=== PATIENT | female | born 1985 | race Caucasian/White ===

== ENCOUNTER 2025-06-08 13:18 | Outpatient (CLI) | payer OTHER, SELFPAY ==
--- NOTE | ~2025-06-08 | MM_ITS ---
EXAMINATION: MM screening ching BI w jaxson HISTORY: Screening TECHNIQUE: Craniocaudal and mediolateral oblique 3-D tomosynthesis images were obtained and synthetic 2-D images were generated. CAD analysis was submitted and interpreted. COMPARISON: No prior mammogram is available for comparison at this institution. BREAST PARENCHYMAL COMPOSITION: Dense: The breasts are heterogeneously dense, which may obscure small masses FINDINGS: There is a mass in the lower inner quadrant of the right breast, middle third. There is no mammographic evidence for malignancy in the left breast. IMPRESSION: 1. Right breast mass, lower inner quadrant, middle third. 2. Additional mammographic views and possible breast ultrasound are recommended. BI-RADS Category 0: Incomplete: Needs additional imaging evaluation. Reviewed, dictated and finalized at location B. IMPRESSION: 1. Right breast mass, lower inner quadrant, middle third. 2. Additional mammographic views and possible breast ultrasound are recommended . BI-RADS Category 0: Incomplete: Needs additional imaging evaluation.
--- OUTSIDE RECORDS SUMMARY | 2025-06-08 13:23 | XMS_ITS | Clinical Summary ---
Author Organization [facility] Virtual Care Address [address] [place] [place] [phone] Phone Care Team Providers Care Manager Information Name Role Phone Pastor Hou MD Primary Care Provider + [phone] Allergies No known active allergies Medications ibuprofen (ADVIL,MOTRIN) 400 mg tablet Take 600 mg by mouth every 6 (six) hours as needed Active venlafaxine 150 mg tablet extended release 24hr 24 hr tablet Take 150 mg by mouth daily Active vit D3-vit D-doxzvvhwu-kxca [phone] kzos-ufh-oe-mg tablet Take by mouth Active cyclobenzaprine (FLEXERIL) 10 mg tablet Take 10 mg by mouth 3 (three) times a day as needed for muscle spasms Active Active Problems Problem Noted Date Diagnosed Date Intervertebral disc disorder with radiculopathy of lumbar region 12/11/2020 Anxiety 11/12/2009 Cephalalgia 04/24/2009 Atypical migraine 04/24/2009 Immunizations Immunization Administration Dates Next Due DTP 04/20/1990 Influenza, Unspecified 09/08/2020 OPV 04/20/1990 Surgical History Surgery Date Site/Laterality Comments SECTION Medical History Medical History Date Comments Aneurysm Anxiety Depression Family History Medical History Relation Name Comments Stroke Maternal Grandmother Hypertension Mother Hypertension Other 1 Hypertension - mom (Added by TW Conv) Heart disease Other 2 Heart Disease - MGF (Added by TW Conv) Diabetes Other 3 Diabetes Mellit us - PGF (Added by TW Conv) Cancer Other 4 Reported A Hist ory Of Cancer - PHF bladder ca (Added by TW Conv) Migraines Other 5 Common Migraine (Without Aura) - mom and (M)aunt (Added by LITO Conv) Cancer Paternal Grandmother Diabetes Paternal Grandmother Relation Name Status Comments Maternal Grandmother Mother Other 1 Other 2 Other 3 Other 4 Other 5 Paternal Grandmother Social History Tobacco Use Types Packs/Day Years Used Date Smoking Tobacco: Never Smokeless Tobacco: Never Tobacco Cessation:Counseling Given: No Alcohol Use Standard Drinks/Week Comments Yes 1 (1 standard drink = 0.6 oz pur e alcohol) Comments Unknown Sex and Gender Information Value Date Recorded Sex Assigned at Not on file Legal Sex Female 8:24 AM ART GALLERY INTERNS[employer]IP Gender Identity Not on file Sexual Orientation Not on file Obstetrics History Last Filed Vital Signs Vital Sign Reading Time Taken Comments Blood Pressure 126/87 12/11/2020 1:30 PM ART GALLERY INTERNSHIP Pulse 99 12/11/2020 1:30 PM ART GALLERY INTERNSHIP Temperature 36.7 C (98 F) 11/30/2020 7:45 PM ART GALLERY INTERNSHIP Respiratory Rate - - Oxygen Saturation 96% 11/30/2020 7:45 PM ART GALLERY INTERNSHIP Inhaled Oxygen Concentration - - Weight 90.7 kg (200 lb) 12/11/2020 1:30 PM ART GALLERY INTERNSHIP Height 167.6 cm (5' 6) 12/11/2020 1:30 PM ART GALLERY INTERNSHIP Body Mass Index 32.28 12/11/2020 1:30 PM ART GALLERY INTERNSHIP Plan of Treatment Health Maintenance Due Date Last Done Comments Breast Cancer Screening-Mammogram 1985 Cervical Cancer Screening 1985 Depression Screening 1985 Hepatitis C Screening 1985 DTaP/Tdap/Td Vaccine (2 - Tdap) 02/27/1996 04/20/1990 Varicella Vaccines (1 of 2 - 13+ 2-dose series) 1998 Hepatitis B Screening 2003 Regular Well Visit/Exam 18-64 2003 HPV Vaccines (1 - 3-dose SCD M series) 02/27/2012 Influenza Vaccine (#1) 2025 0, 08/28/2013 Pneumococcal vaccine <65 Aged Out No longer eligible based on patient's age to complete this topic Insurance [facility] [employer] Address: [address] [place] [address] [employer] Address: [address] [place] [address] [employer] Address: [address] [place] [address] Advance Directives For more information, please contact: [phone] Documents on File Type Date Recorded Patient Casing Fluid Tender Expl anation ADVANCE DIRECTIVE 01/22/2021 5:51 PM Care Teams Manager Information Relationship Specialty Start Date End Date Pastor Hou MD [address] [address] PCP - General Family Medicine 12/09/20
--- OUTSIDE RECORDS SUMMARY | 2025-06-08 13:23 | XMS_ITS | Referral Summary ---
Author Organization [facility] Virtual Care Address [address] [place] [phone] Phone Care Team Providers Care Water Control Station Engineer Name Role Phone Pastor Hou MD Primary Care Provider [phone] Allergies No known active allergies Medications ibuprofen (ADVIL,MOTRIN) 400 mg tablet Take 600 mg by mouth every 6 (six) hours as needed Active venlafaxine 150 mg tablet extended release 24hr 24 hr tablet Take 150 mg by mouth daily Active vit D3-vit W-nbmvlqfnj-wake [id number] myds-mgn-nl-mg tablet Take by mouth Active cyclobenzaprine (FLEXERIL) 10 mg tablet Take 10 mg by mouth 3 (three) times a day as needed for muscle spasms Active Active Problems Problem Noted Date Diagnosed Date Intervertebral disc disorder with radiculopathy of lumbar region 12/11/2020 Anxiety 11/12/2009 Cephalalgia 04/24/2009 Atypical migraine 04/24/2009 Immunizations Immunization Administration Dates Next Due DTP 04/20/1990 Influenza, Unspecified 09/08/2020 OPV 04/20/1990 Social History Tobacco Use Types Packs/Day Years Used Date Smoking Tobacco: Never Smokeless Tobacco: Never Tobacco Cessation:Counseling Given: No Alcohol Use Standard Drinks/Week Comments Yes 1 (1 standard drink = 0.6 oz pur e alcohol) Comments Unknown Sex and Gender Information Value Date Recorded Sex Assigned at Not on file Legal Sex Female 8:24 AM CAREER REPRESENTATIVE Gender Identity Not on file Sexual Orientation Not on file Last Filed Vital Signs Vital Sign Reading Time Taken Comments Blood Pressure 126/87 12/11/2020 1:30 PM CAREER REPRESENTATIVE Pulse 99 12/11/2020 1:30 PM CAREER REPRESENTATIVE Temperature 36.7 C (98 F) 11/30/2020 7:45 PM CAREER REPRESENTATIVE Respiratory Rate - - Oxygen Saturation 96% 11/30/2020 7:45 PM CAREER REPRESENTATIVE Inhaled Oxygen Concentration - - Weight 90.7 kg (200 lb) 12/11/2020 1:30 PM CAREER REPRESENTATIVE Height 167.6 cm (5' 6) 12/11/2020 1:30 PM CAREER REPRESENTATIVE Body Mass Index 32.28 12/11/2020 1:30 PM CAREER REPRESENTATIVE Plan of Treatment Not on file Insurance [employer] [facility] [employer] Address: [facility] [address] [place] [address] [employer] [facility] [employer] Address: [facility] [address] [place] [address] [employer] [facility] [employer] Address: [facility] [id number] [place] [address] Advance Directives For more information, please contact: [phone] Documents on File Type Date Recorded Patient Pit Clerk Expl anation ADVANCE DIRECTIVE 01/22/2021 5:51 PM Care Teams Water Control Station Engineer Relationship Specialty Start Date End Date Pastor Hou MD [address] [address] PCP - General Family Medicine 12/09/20
== END 2025-06-08 13:19 | disposition home or self-care (01) ==
LOC: CHSIMG 13:21
PROVIDERS: PCP Family Medicine; Visit Provider Obstetrics & Gynecology Gynecology
DX: Z12.31 Encounter for screening mammogram for malignant neoplasm of breast (principal); R92.8 Other abnormal and inconclusive findings on diagnostic imaging of breast
CPT/HCPCS: 77063; 77067

== ENCOUNTER 2025-06-19 09:17 | Outpatient (CLI) | payer OTHER, SELFPAY ==
--- NOTE | ~2025-06-19 | MMUS_ITS ---
EXAMINATION: MM diagnostic ching RT w jaxson, US breast RT limited HISTORY: Follow-up right breast mass TECHNIQUE: Additional 3-D tomosynthesis images of the right breast were performed and synthetic 2-D i mages were generated. CAD analysis was submitted and interpreted. High resolution Limited right breas t ultrasound was performed. COMPARISON: Mammogram dated 06/08/2025 BREAST PARENCHYMAL COMPOSITION: Dense: The breasts are heterogeneously dense, which may obscure small masses FINDINGS: MAMMOGRAPHIC FINDINGS: There is a mass of the right breast involving the medial aspect of the right breast at approximately 3:00 position, middle third. There are no suspicious calcifications or architectural distortion. ULTRASOUND: Limited right breast ultrasound: At 2:00, 6 cm from the nipple there is a solid mass which is paralle l to the skin surface is slightly irregular lateral margins and no internal vascularity. This mass me asures 11 x 9 x 8 mm. IMPRESSION: 1. Right breast mass located at 2:00, 6 cm from the nipple measuring 11 mm corresponding to the mammo graphic finding. 2. Ultrasound-guided right breast biopsy recommended. BI-RADS category 4, suspicious findings. Reviewed, dictated and finalized at location A. IMPRESSION: 1. Right breast mass located at 2:00, 6 cm from the nipple measuring 11 mm taj esponding to the mammographic finding. 2. Ultrasound-guided right breast biopsy recommended. BI-RADS category 4, suspicious findings.
--- OUTSIDE RECORDS SUMMARY | 2025-06-19 09:48 | XMS_ITS | Clinical Summary ---
Author Organization [facility] Virtual Care Address [address] [place] [phone] Phone Care Team Providers Care Road Freight Firer Name Role Phone Pastor Hou MD Primary Care Provider + [phone] Allergies No known active allergies Medications ibuprofen (ADVIL,MOTRIN) 400 mg tablet Take 600 mg by mouth every 6 (six) hours as needed Active venlafaxine 150 mg tablet extended release 24hr 24 hr tablet Take 150 mg by mouth daily Active vit D3-vit C-larjqpevv-rnsh [phone] bcjr-ckl-qs-mg tablet Take by mouth Active cyclobenzaprine (FLEXERIL) [...] on file Legal Sex Female 8:24 AM RF DESIGN ENGINEER Gender Identity Not on file Sexual Orientation Not on file Obstetrics History Last Filed Vital Signs Vital Sign Reading Time Taken Comments Blood Pressure 126/87 12/11/2020 1:30 PM RF DESIGN ENGINEER Pulse 99 12/11/2020 1:30 PM RF DESIGN ENGINEER Temperature 36.7 C (98 F) 11/30/2020 7:45 PM RF DESIGN ENGINEER Respiratory Rate - - Oxygen Saturation 96% 11/30/2020 7:45 PM RF DESIGN ENGINEER Inhaled Oxygen Concentration - - Weight 90.7 kg (200 lb) 12/11/2020 1:30 PM RF DESIGN ENGINEER Height 167.6 cm (5' 6) 12/11/2020 1:30 PM RF DESIGN ENGINEER Body Mass Index 32.28 12/11/2020 1:30 PM RF DESIGN ENGINEER Plan of Treatment Health Maintenance Due Date [...] age to complete this topic Insurance [employer] [facility] [employer] Address: [address] [place] [address] [employer] [facility] [employer] Address: [address] [place] [address] [employer] [facility] [employer] Address: [address] [place] [address] Advance Directives For more information, please contact: [phone] Documents on File Type Date Recorded Patient Guard Entrance Registrar Expl anation ADVANCE DIRECTIVE 01/22/2021 5:[address] Freight Firer Relationship Specialty Start Date End Date Pastor Hou MD [address] [address] PCP - General Family Medicine 12/09/20
== END 2025-06-19 09:18 | disposition home or self-care (01) ==
PROVIDERS: PCP Family Medicine; Visit Provider Obstetrics & Gynecology Gynecology
DX: R92.8 Other abnormal and inconclusive findings on diagnostic imaging of breast (principal)
CPT/HCPCS: 76642; 77061; 77065; G0279

== ENCOUNTER 2025-07-03 08:27 | Outpatient (CLI) | payer OTHER, SELFPAY ==
--- NOTE | ~2025-07-03 | MMUS_ITS ---
PROCEDURE: US breast biopsy RT w image, MM post biopsy diagnostic RT CLINICAL HISTORY: 40-year-old with suspicious right breast mass at 2:00 location, presents for ultrasound-guided right breast core needle biopsy procedure. COMPARISON: 06/19/2025 Following informed consent including risks, benefits, and possible complications, the patient was brought to the ultrasound suite. A time-out procedure was performed. A preliminary ultrasound of the right breast was performed, redemonstrating the targeted lesion of the solid hypoechoic mass at 12:00, 6 cm from the nipple. The patient was prepped and draped in the usual sterile fashion. 1% lidocaine was instilled into the subcutaneous tissues. 1% lidocaine without epinephrine was injected into the deep tissues just inferior to the lesion. Approximately 15cc lidocaine was administered. A small skin natalie was made. Multiple core samples were obtained with a 14-gauge multi pass biopsy needle. A post biopsy coil Hydromark marker was placed at the biopsy site. Postprocedural mammogram of the right breast in craniocaudal and mediolateral projections reveal the post biopsy metal marker in good position. The patient tolerated the procedure well and was without immediate postprocedural complications. IMPRESSION: Successful ultrasound guided biopsy of right breast mass. A post biopsy coil Hydromark marker was placed at the biopsy site, which is seen on postprocedural mammogram. The patient tolerated the procedure well without immediate postprocedure complications. The patient was given postprocedural instructions and sent home in stable condition. Reviewed, dictated and finalized at location B. IMPRESSION: Successful ultrasound guided biopsy of right breast mass. A post bi opsy coil Hydromark marker was placed at the biopsy site, which is seen on post procedural mammogram. The patient tolerated the procedure well without immediate postprocedure compli cations. The patient was given postprocedural instructions and sent home in sta ble condition.
--- OUTSIDE RECORDS SUMMARY | 2025-07-03 08:37 | XMS_ITS | Clinical Summary ---
Author Organization [facility] Virtual Care Address [address] [place] [address] Phone Care Team Providers Care Dietary Services Manager Name Role Phone Pastor Hou MD Primary Care Provider + [phone] Allergies No known active allergies Medications ibuprofen (ADVIL,MOTRIN) 400 mg tablet Take 600 mg by mouth every 6 (six) hours as needed Active venlafaxine 150 mg tablet extended release 24hr 24 hr tablet Take 150 mg by mouth daily Active vit D3-vit D-srotwcmqd-wgjj [phone] ejhh-yxa-li-mg tablet Take by mouth Active cyclobenzaprine (FLEXERIL) [...] on file Legal Sex Female 8:24 AM FRAME CLEANER Gender Identity Not on file Sexual Orientation Not on file Obstetrics History Last Filed Vital Signs Vital Sign Reading Time Taken Comments Blood Pressure 126/87 12/11/2020 1:30 PM FRAME CLEANER Pulse 99 12/11/2020 1:30 PM FRAME CLEANER Temperature 36.7 C (98 F) 11/30/2020 7:45 PM FRAME CLEANER Respiratory Rate - - Oxygen Saturation 96% 11/30/2020 7:45 PM FRAME CLEANER Inhaled Oxygen Concentration - - Weight 90.7 kg (200 lb) 12/11/2020 1:30 PM FRAME CLEANER Height 167.6 cm (5' 6) 12/11/2020 1:30 PM FRAME CLEANER Body Mass Index 32.28 12/11/2020 1:30 PM FRAME CLEANER Plan of Treatment Health Maintenance Due Date [...] age to complete this topic Insurance [facility] [employer] Address: [address] [place] [address] [employer] [employer] [facility] [employer] Address: [address] [place] [address] [employer] [employer] Address: [address] [place] [address] Advance Directives For more information, please contact: [phone] Documents on File Type Date Recorded Patient Fire Extinguisher Tester Expl anation ADVANCE DIRECTIVE 01/22/2021 5:51 PM Care Teams Dietary Services Manager Relationship Specialty Start Date End Date Pastor Hou MD [address] [address] PCP - General Family Medicine 12/09/20
--- OUTSIDE RECORDS SUMMARY | 2025-07-03 08:37 | XMS_ITS | Clinical Summary ---
Author Organization [facility] Address [address] [place] [address] Care Team Providers Care Scientist Engineer Name Role Phone Pastor Hou MD Primary Care Provider [phone] Allergies No known active allergies Medications busPIRone 10 MG tabletIndicatio ns:2 tablets in the morning and 1 tablet in the evening Take 10 mg by mouth 2 (two) times daily. Indications: 2 tablets in the morning and 1 tablet in the evening Active venlafaxine XR 150 MG 24 hr capsule Take 150 mg by mouth daily. Active ibuprofen 400 MG tablet Take 400 mg by mouth every 6 (six) hours as needed for Pain. Active Active Problems No known active problems Family History Medical History Relation Comments Alzheimers Maternal Grandfather Heart Disease Maternal Grandfather Hypertension Mother Cancer Paternal Grandfather Diabetes Paternal Grandfather Relation Status Comments Brother Alive Father Alive Maternal Grandfather Alive Mother Alive Paternal Grandfather Sister 1 Alive Sister 2 Alive Social History Tobacco Use Types Packs/Day Years Used Date Smoking Tobacco: Never Smokeless Tobacco: Never Tobacco Cessation:Counseling Given: No Alcohol Use Standard Drinks/Week Comments Yes 0 (1 standard drink = 0.6 oz pur e alcohol) AUDIT-C Answer Date Recorded Q1: How often do you have a drink containing alc ohol? Monthly or less 06/25/2020 Average Number of Drinks Not on file 020 Frequency of Binge Drinking Not on file 06/08 PHQ-2 Answer Date Recorded PHQ-2 Score - If the patient scores above 3, please move on to questions 3-9 0 06/25/2020 Sex and Gender Information Value Date Recorded Sex Assigned at Male 06/25/2020 2:42 PM CDT Legal Sex Female 6:59 PM CDT Gender Identity Male 06/25/2020 2:42 PM CDT Sexual Orientation Straight 06/25/2020 2: 42 PM CDT Last Filed Vital Signs Vital Sign Reading Time Taken Comments Blood Pressure 128/76 06/25/2020 2:33 PM CDT Pulse 85 06/25/2020 2:33 PM CDT Temperature - - Respiratory Rate - - Oxygen Saturation 98% 06/25/2020 2:33 PM CDT Inhaled Oxygen Concentration - - Weight 86.8 kg (191 lb 4.8 oz) 06/25/2020 2:33 P M CDT Height 168.7 cm (5' 6.4) 06/25/2020 2:33 PM CDT Body Mass Index 30.51 06/25/2020 2:33 PM CDT Plan of Treatment Health Maintenance Due Date Last Done Comments Annual Physical 02/27/1988 Hepatitis C 2003 DTaP, Tdap and Td Vaccines ( 2 - Tdap) 02/27/2004 04/20/1990 Hepatitis B Vaccines (1 of 3 - 19+ 3-dose series) 02/27/2004 HPV Vaccines (1 - 3-dose SCD M series) 02/27/2012 COVID-19 Vaccine (2023-2 5 season) 2024 Meningococcal B Vaccine Aged Out No l onger eligible based on patient's age to complete this topic Meningococcal Vaccine Aged Out No damian lane eligible based on patient's age to complete this topic Pneumococcal Vaccine: Pediat rics (0 to 5 Years) and At-Risk Patients (6 to 49 Years) Aged Out No longer eligi ble based on patient's age to complete this topic RSV Immunizations Under 20 Months Aged Out No longer eligible based on patient's age to complete this topic Insurance [facility] [employer] Care Teams Scientist Engineer Relationship Specialty Start Date End Date Pastor Hou MD [address] [facility] [address] [place] [address] PCP - General 08/11/16
--- NOTE | 2025-07-03 09:44 | S_PTH ---
PATIENT: Tatianna Lobo LOC: [facility] U#:[id number] AGE/SX: 40/F ROOM: RE07/03/[address]: Dee Zuluaga MD : 1985 BED: DIS: 07/03/2025 SPEC #: [id number] RECD: 07/03/25 10:21 STATUS: TAYLA RESandi #: [id number] DEBORAH: 07/03/25 09:[address]: Dee Zuluaga DEPT: [facility] Surgical RECD BY: Anisha Shelby ENTERED: 07/03/25 10:21 SP TYPE: Surgical OTHR DR: Pastor oHu, Tissues: A - Breast Biopsy Procedures: Betancourt Keratin Hematoxylin and Eosin Stain Estrogen Receptor Immuno Progestogen Receptor immuno Gross and Microscopic Level 4 CK 5
== END 2025-07-03 08:28 | disposition home or self-care (01) ==
PROVIDERS: PCP Family Medicine; Visit Provider Surgery
DX: R92.8 Other abnormal and inconclusive findings on diagnostic imaging of breast (principal); D24.1 Benign neoplasm of right breast
CPT/HCPCS: 19083; 77065; 88305; 88342; A4648